=== PATIENT | female | born 1940 | race Caucasian/White ===

== ENCOUNTER 2021-07-06 12:05 | Outpatient (REF) | payer MEDICARE, OTHER, SELFPAY ==
[2021-07-06 14:08] LABS: Erythrocyte Sedimentation Rate 28 MM/HR (0-20)
[2021-07-08 01:51] LABS: Lyme Abs Screen <0.90 index
[2021-07-08 12:31] LABS: Anti Nuclear Antibody Screen NEGATIVE (NEGATIVE)
== END 2021-07-06 12:06 | disposition home or self-care (01) ==
LOC: HO.LAB 12:05
PROVIDERS: PCP Internal Medicine; Visit Provider Psychiatry & Neurology Neurology
DX: G35 Multiple sclerosis (principal)
CPT/HCPCS: 36415; 85652; 86038; 86039; 86617; 86618

== ENCOUNTER 2021-07-08 12:43 | Outpatient (REF) | payer MEDICARE, OTHER, SELFPAY | END 2021-07-08 12:44 | disposition home or self-care (01) | LOC: HO.MDS 12:43 | PROVIDERS: PCP Internal Medicine; Visit Provider Psychiatry & Neurology Neurology | DX: G35 Multiple sclerosis (principal) | CPT/HCPCS: 96365; J2930 ==

== ENCOUNTER 2021-07-09 12:46 | Outpatient (REF) | payer MEDICARE, OTHER, SELFPAY | END 2021-07-09 12:47 | disposition home or self-care (01) | LOC: HO.MDS 12:46 | PROVIDERS: PCP Internal Medicine; Visit Provider Psychiatry & Neurology Neurology | DX: G35 Multiple sclerosis (principal) | CPT/HCPCS: 96365; J2930 ==

== ENCOUNTER 2021-07-10 12:52 | Outpatient (REF) | payer MEDICARE, OTHER, SELFPAY | END 2021-07-10 12:53 | disposition home or self-care (01) | LOC: HO.MDS 12:52 | PROVIDERS: Visit Provider Psychiatry & Neurology Neurology | DX: G35 Multiple sclerosis (principal) | CPT/HCPCS: 96365; J2930 ==